=== PATIENT | female | born 1970 | race Caucasian/White ===

== ENCOUNTER → 2019-12-04 | Outpatient (CLI) | payer BC ==
--- NOTE | 2019-12-04 16:29 | KCIC ---
Bilateral digital screening mammograms with 3-D tomosynthesis: Reason for examination: Routine screening. Comparison is made to previous study dated 09/10/2015. Bilateral mammograms in CC and oblique projections were obtained with 2-D imaging and 3-D tomosynthesis imaging on a Siemens Inspiration unit and reviewed on the workstation. Interpretation was made with the benefit of CAD. The skin and nipples show no abnormalities. No abnormal axillary lymph nodes are seen. The breast parenchyma shows scattered fatty and fibroglandular density. (Breast density: Category B.) There appears to be a small nodular density in the 12:00 B position of the right breast measuring approximately 5 mm in size. There is a small nodule laterally in the left breast on cc view measuring 5.8 mm in size which is circumscribed and probably lies at the 4:00 B position. There is also a small circumscribed nodule present at approximately the 9:30 B position of the left breast measuring approximately 3.5 mm in size. Further evaluation with ultrasound should be considered. There are no other dominant masses, suspicious calcifications or architectural distortion. Impression: Small nodular densities seen bilaterally as described above. Recommend further evaluation with ultrasound. BI-RADS Category 0: Incomplete: Need additional imaging evaluation. "Our facility is accredited by the [employer] Mammography [employer]." This patient's information has been entered into a reminder system for the patient to be notified with the results of her examination and a target date for the next mammogram. Electronically signed by: Maria G Nguyen MD (12/04/2019 4:26 PM) [email or web address]
== END | disposition home or self-care (01) ==
LOC: KCIC MAMMO 13:26
PROVIDERS: ATTEND Family Medicine
DX: Z12.31 Encounter for screening mammogram for malignant neoplasm of breast (principal); N64.89 Other specified disorders of breast
CPT/HCPCS: 77063; 77067

== ENCOUNTER → 2019-12-31 | Outpatient (CLI) | payer BC ==
--- NOTE | 2019-12-31 18:20 | KCIC ---
Bilateral breast ultrasound: Reason for examination: Nodules on screening mammogram. Comparison is made to mammographic exam dated 12/04/2019. Ultrasound examination was performed bilaterally with attention to the areas of mammographic concern and the axilla. In the right breast at the 12:00 position 6 cm from the nipple, there is a 4.5 mm hypoechoic lesion with a benign fibrocystic appearance. No suspicious lesions are seen. No abnormal appearing lymph nodes are seen in the right axilla. In the left breast at the 4:00 position 4 cm from the nipple, there is a 3.9 mm hypoechoic fibrocystic type lesion. At the 9:30 position 4 cm from the nipple, there is also a 3.7 mm hypoechoic fibrocystic type lesion. No suspicious nodules are seen. No abnormal appearing lymph nodes are seen in the left axilla. IMPRESSION: Small benign-appearing fibrocystic lesions bilaterally. No suspicious lesion seen. Recommend 6 month follow-up with ultrasound. BI-RADS Category 3: Probably Benign. "Our facility is accredited by the [employer] Mammography [employer]." This patient's information has been entered into a reminder system for the patient to be notified with the results of her examination and a target date for the next mammogram. Electronically signed by: Maria G Nguyen MD (12/31/2019 6:16 PM) [facility]
== END | disposition home or self-care (01) ==
LOC: KCIC US 07:45
PROVIDERS: ATTEND Family Medicine
DX: N60.12 Diffuse cystic mastopathy of left breast (principal); N60.11 Diffuse cystic mastopathy of right breast
CPT/HCPCS: 76641

== ENCOUNTER → 2020-09-09 | Outpatient (CLI) | payer BC ==
--- NOTE | 2020-09-09 12:02 | KCIC ---
Bilateral breast ultrasound: Reason for examination: Follow-up nodules. Comparison is made to previous study dated 12/31/2019. Bilateral breast ultrasound including the axilla was performed. In the right breast at the 12:00 position 6 cm from the nipple, there continues to be a small 2.9 x 1 .9 cm nodule which has shown interval decrease in size. No other cystic or solid lesions are seen and no abnormal appearing lymph nodes are seen in the right axilla. In the left breast, there continues to be a 5.2 mm cystic-appearing lesion at the 4:00 position 4 cm from the nipple. At the 9:30 position 4 cm from the nipple, there is a small 3.5 mm hypoechoic lesion which is stable. No suspicious lesions are seen. No abnormal appearing lymph nodes are seen in the a xilla. IMPRESSION: Stable nodules bilaterally with benign fibrocystic appearances. Recommend continued 6 month follow-up ultrasound exams which can be performed at the time of bilateral mammograms. BI-RADS Category 3: Probably Benign. "Our facility is accredited by the [employer] Mammography [employer]." This patient's information has been entered into a reminder system for the patient to be notified wit h the results of her examination and a target date for the next mammogram. Electronically signed by: Maria G Nguyen MD (09/09/2020 12:00 PM) [facility]
== END ==
LOC: KCIC US 07:48
PROVIDERS: ATTEND Family Medicine
DX: R92.8 Other abnormal and inconclusive findings on diagnostic imaging of breast (principal); N63.20 Unspecified lump in the left breast, unspecified quadrant; N63.10 Unspecified lump in the right breast, unspecified quadrant
CPT/HCPCS: 76641

== ENCOUNTER → 2021-05-04 | Outpatient (CLI) | payer BC ==
--- NOTE | 2021-05-04 15:31 | KCIC ---
Bilateral diagnostic digital mammograms with 3-D tomosynthesis: Reason for examination: Follow-up for nodules. Comparison is made to previous studies dated 12/04/2019 and 09/10/2015. Bilateral mammograms in CC and oblique projections were obtained with 2-D imaging and 3-D tomosynthes is imaging on a Siemens Inspiration unit and reviewed on the workstation. Interpretation was made wit h the benefit of CAD. The skin and nipples show no abnormalities. No abnormal axillary lymph nodes are seen. The breast par enchyma shows scattered fatty and fibroglandular density. (Breast density: Category B.) There appears to be improvement in the nodularity seen bilaterally. There are no new dominant masses, suspicious c alcifications or architectural distortion. Impression: Nodularity seen bilaterally. Ultrasound to follow. BI-RAD Category 0: Incomplete. Needs additional imaging evaluation. Bilateral breast ultrasound: Comparison is made to previous studies dated 12/31/2019 and 09/09/2020. Ultrasound examination was performed breast and axilla bilaterally. In the right breast, there has been resolution of the small nodule seen previously at the 12:00 posit ion. Is no other cystic or solid nodules are seen. No abnormal appearing lymph nodes are seen in the right axilla. In the left breast, there is a small 3.6 mm cystic-appearing lesion at the 4:00 position 4 cm from th e nipple. There is a 3.4 mm circumscribed cystic-appearing lesion at the 9:30 position 4 cm from the nipple. There is also a cystic structure consistent with some cystic ductal ectasia in the retroareol ar position. No abnormal appearing lymph nodes are seen in the left axilla IMPRESSION: Cystic-appearing lesions in the left breast. No suspicious abnormality seen in either breast. Recomme nd routine mammographic follow-up. BI-RADS Category 2: Benign. "Our facility is accredited by the [employer] Mammography [employer]." This patient's information has been entered into a reminder system for the patient to be notified wit h the results of her examination and a target date for the next mammogram. Electronically signed by: aMria G Nguyen MD (05/04/2021 3:28 PM) [email or web address]
== END ==
LOC: KCIC MAMMO 08:35
PROVIDERS: ATTEND Family Medicine
DX: N64.89 Other specified disorders of breast (principal); R92.8 Other abnormal and inconclusive findings on diagnostic imaging of breast
CPT/HCPCS: 76641; 77066; G0279; 77062